=== PATIENT | male | born 1940 | race Caucasian/White ===

== ENCOUNTER → 2021-03-19 15:04 | Outpatient (CLI) | payer MEDICARE, SELFPAY ==
--- NOTE | 2021-03-19 15:13 | DI.ECHO.S_ITS ---
[facility]---------[facility] +---------+ : : [address] : [address] : : : : [id number] : : : : Phone: [phone]---------+ Echocardiogram Report + + :Name: SEBASTIEN PETERS Study Date: 03/19/2021 Height: 70 in : :[facility] ReadingLocation: Weight: 180 lb : : Gender: Male BSA: 2.0 m2 : :: 1940 Age: 80 yrs BP: 115/65 mmHg: :Reason For Study: Cardiomyopathy, Ischemic : :Ordering Physician: Yan : :Myrna Stock Performed By: Olvin Cruz : :Referring: YAN STOCK : + + Interpretation Summary 1) Normal left ventricular size and thickness with moderately reduced systolic function (EF 35-40%). 2) The apical 1/3 of the LV extending to the mid to distal septum are akinetic. Rest of the LV is mildly hypokinetic. 3) Normal right ventricular size and function. 4) No significant valvular abnormlaities. 5) No prior Echo available for comparison. Procedure: A two-dimensional transthoracic echocardiogram with color flow and Doppler was performed. The study quality was technically difficult. There is no prior echocardiogram noted for this patient. The patient was in sinus rhythm with heart rates between 65-83 bpm during the exam. Left Ventricle: The left ventricle is normal in size and wall thickness. The left ventricle is not well visualized. Left ventricular systolic function is moderately reduced. The ejection fraction is estimated to be 35-40%. The apical 1/3 of the LV extending to the mid to distal septum are akinetic. Rest of the LV is mildly hypokinetic. Diastolic parameters suggest a relaxation abnormality of the left ventricle, consistent with probable normal filling pressures. Right Ventricle: The right ventricle is normal in size and function. Atria: Both atria are normal in size. Right atrial size is normal. There is no Doppler evidence for an interatrial shunt. Mitral Valve: There is mild mitral annular calcification. There is no mitral regurgitation noted. Aortic Valve: The aortic valve is normal in structure and function. There is no aortic valve stenosis. No aortic regurgitation is present. Tricuspid Valve: The tricuspid valve is normal in structure and function. There is mild tricuspid regurgitation. Right ventricular systolic pressure is estimated to be 25 mmHg plus the clinically estimated CVP which cannot be estimated on this exam. Pulmonic Valve: The pulmonic valve is not well seen, but is grossly normal. There is no pulmonic valvular regurgitation. Great Vessels: The aortic root is normal size. The dimensions of the ascending aorta are normal. The inferior vena cava was not visualized. Pericardium/ Pleura There is no pericardial effusion. There is no pleural effusion. MMode/2D Measurements & Calculations LVIDd: 5.0 cm LVOT diam: 2.4 cm LVIDs: 4.2 cm Ao root diam: 3.7 cm FS: 17.1 % asc Aorta Diam: 3.2 cm IVSd: 1.1 cm LVPWd: 0.67 cm LV ferguson. diameter/BSA (cm/m^2): 2.5 LV sys. diameter/BSA (cm/m^2): 2.1 LA A2 area: 18.5 cm2 RA long axis: 4.2 cm LA A4 area: 16.5 cm2 RA area: 13.0 cm2 LA length (vol): 4.7 cm RA vol: 34.3 ml LA vol: 54.7 ml RA : 17.2 ml/m2 LA vol index: 27.4 ml/m2 TAPSE: 2.1 cm Doppler Measurements & Calculations Ao V2 max: 109.6 cm/sec LVOT Max Ahmet: 66.7 cm/sec Ao V2 mean: 79.6 cm/sec LV V1 max P.8 mmHg Ao max P.8 mmHg LV V1 VTI: 14.6 cm Ao mean P.8 mmHg SONIA(I,D): 2.7 cm2 Ao V2 VTI: 23.9 cm SONIA(V,D): 2.7 cm2 sev ratio: 0.61 SONIA indexed to BSA (cm^2/m^2): 1.3 MV E max ahmet: 51.3 cm/sec TR max ahmet: 251.2 cm/sec MV A max ahmet: 99.3 cm/sec TR max P.2 mmHg MV E/A: 0.52 PA V2 max: 74.9 cm/sec Med Peak E' Ahmet: 5.2 cm/sec PA V2 mean: 61.4 cm/sec E/E' med: 10.0 PA mean P.6 mmHg Lat Peak E' Ahmet: 6.0 cm/sec PA pr(Accel): 40.6 mmHg E/E' lat: 8.6 E/e' average: 9.3 MV dec time: 0.28 sec SV(LVOT): 63.7 ml Reading Physician:05:20 PM
== END ==
PROVIDERS: Referring Provider Internal Medicine Cardiovascular Disease; Visit Provider Internal Medicine Cardiovascular Disease
DX: I07.1 Rheumatic tricuspid insufficiency (principal); I25.5 Ischemic cardiomyopathy
CPT/HCPCS: 93306

== ENCOUNTER → 2023-04-15 15:40 | Outpatient (CLI) | payer MEDICARE, SELFPAY | PROVIDERS: PCP Family Medicine; Visit Provider Physician Assistant | DX: N39.0 Urinary tract infection, site not specified (principal) | CPT/HCPCS: 87086 ==

== ENCOUNTER → 2023-04-18 14:05 | Outpatient (CLI) | payer MEDICARE, SELFPAY ==
--- NOTE | 2023-04-18 14:06 | DI.US.S_ITS ---
PROCEDURE: US RENAL COMPLETE INDICATIONS: RAQUEL PAINLESS BLOOD IN URINE TECHNIQUE: Real-time scanning was performed of the kidneys and bladder, with image documentation. COMPARISON: None. FINDINGS: Kidneys: Kidneys are normal in size. Right kidney measures 11.2 cm long; left kidney measures 11.2 cm long. Right renal cortical thickness is 1.2 cm; left renal cortical thickness is 1.4 cm. Renal cortical echotexture is normal. Non-obstructing left renal stone measuring 3 mm with posterior shadowing. No hydronephrosis. Right renal simple cyst measuring 1.5 cm. Bladder: Pre-void bladder volume is 211 mL. Post-void residual is 65 mL. Pre-void images demonstrate no intraluminal masses or stones. On pre-void images, bilateral ureteral jets are noted with color Doppler interrogation. (Of note, ureteral jets may not be detectable in up to 25% of cases due to insufficient differences in specific gravity between ureteral and bladder urine). Miscellaneous: No free pelvic fluid. IMPRESSION: 1. Non-obstructing left renal stone measuring 3 mm. No hydronephrosis 2. Postvoid residual volume of 65 mL. Dictated by: Onofre Paniagua M.D. on 04/18/2023 at 14:51 Approved by: Onofre Paniagua M.D. on 04/18/2023 at 14:54
== END ==
PROVIDERS: PCP Family Medicine; Referring Provider Family Medicine; Visit Provider Family Medicine
DX: R31.9 Hematuria, unspecified (principal); N20.0 Calculus of kidney
CPT/HCPCS: 76770

== ENCOUNTER 2023-06-29 12:13 | Emergency (ER) | payer MEDICARE, SELFPAY ==
[2023-06-29] VITALS (7 sets, daily range): BP systolic 119–157; BP diastolic 59–72; PULSE 57–78; RESP 16; TEMP 36.8; O2SAT 98–99; BMI 25.8
[2023-06-29 12:39] LABS: Appearance Urine UA CLEAR; Bilirubin Urine UA NEGATIVE (NEGATIVE); Color Urine UA YELLOW; Glucose Urine UA NEGATIVE (Negative); Ketones Urine UA 1+ (NEGATIVE); Leukocyte Esterase Urine UA TRACE (NEGATIVE); Nitrite Urine UA NEGATIVE (Negative); Occult Blood Urine UA 3+ (Negative); Protein Urine UA 2+ (Negative); pH Urine UA 6.5 (4.5-8.0)
[2023-06-29 12:54] LABS: Bacteria Urine Few (2-10); Culture Indicated Urine Specimen Cultured; RBC Urine >100/HPF (0-5/HPF); Squamous Epithelial Cell Urine 0-1 /HPF (0-5/HPF); WBC Urine 0-1/HPF (0-5/HPF)
[2023-06-29 12:57] LABS: Add Manual Diff / Slide Review NO; Basophils Absolute Auto 100 /uL (0-100); Basophils Percent Auto 0.6 % (0-2); Eosinophils Absolute Auto 0 /uL (0-450); Eosinophils Percent Auto 0.1 % (2-4); Hematocrit 44.8 % (41-53); Hemoglobin 15.2 g/dL (13.5-17.5); Lymphocytes Absolute Auto 700 /uL (1100-4500); Mean Corpuscular HGB Conc 33.8 % (30-36); Mean Corpuscular Hemoglobin 33.9 PG (26-34); Monocytes Absolute Auto 400 /uL (0-900); Neutrophils Absolute Auto 8200 /uL (1500-7000); Neutrophils Percent Auto 87.3 % (50-75); Platelet Count 130 X10^3/uL (150-400); Red Blood Cell Count 4.48 X10^6/uL (4.5-5.9); Red Cell Distribution Width 14.3 % (11.6-14.8); White Blood Cell Count 9.3 X10^3/uL (4.5-11.0)
[2023-06-29 13:11] LABS: Lactate (Lactic Acid) 1.1 mmol/L (0.7-2.1)
[2023-06-29 13:12] LABS: Alanine Aminotransferase 23 IU/L (<50); Albumin 4.2 g/dL (3.5-5.0); Albumin Globulin Ratio 1.6 (1.0-2.8); Alkaline Phosphatase 69 U/L (38-126); Aspartate Aminotransferase 26 IU/L (17-59); BUN Creatinine Ratio 22.5 (6-22); Bilirubin Total 0.5 mg/dL (0.2-1.3); Blood Urea Nitrogen 27 mg/dL (9-20); Calcium 9.3 mg/dL (8.4-10.2); Carbon Dioxide 30 mmol/L (22-32); Chloride 102 mmol/L (98-107); Estimated Glomerular Filt Rate > 60 mL/min (>60); Globulin 2.7 g/dL (1.7-4.1); Glucose 144 mg/dL (80-110); HEMOLYSIS 15 (0-50); Potassium 4.9 mmol/L (3.4-5.1); Sodium 137 mmol/L (137-145); Total Protein 6.9 g/dL (6.3-8.2)
[2023-06-29] MEDS: SODIUM CHLORIDE 0.9% 500 ML IV (13:19)
--- NOTE | 2023-06-29 13:25 | DI.CT.S_ITS ---
PROCEDURE: CT ABDOMEN PELVIS W CON INDICATIONS: hematuria, flank pain TECHNIQUE: After the administration of intravenous contrast, 5 mm thick images acquired from the diaphragm to the symphysis pubis For radiation dose reduction, the following was used: automated exposure control, adjustment of mA and/or kV according to patient size. COMPARISON: [facility], , US RENAL COMPLETE, 04/18/2023, 14:12. FINDINGS: Image quality: Excellent. Lung bases: Lung bases are clear. Heart size is normal. Urinary system: Both kidneys are atrophic in size and enhancement. There is a 3 mm proximal left ureteral calcification with mild hydronephrosis and mild proximal hydroureter. Simple bilateral renal cysts are present. Contrast-filled renal calyces are normal in morphology. Contrast filled portions of both ureters are normal in caliber. Bladder wall thickness is normal. Solid organs: Liver is normal in size and enhancement. Hepatic steatosis is present. Gallbladder is unremarkable . Biliary system is non dilated. Pancreas enhances normally. Spleen is normal in size and enhancement. No adrenal nodules. Peritoneum and bowel: Bowel loops are nonobstructive. There is mild appearance of thickening at the rectum. Colonic diverticula are present. Nodes and vessels: No retroperitoneal or mesenteric adenopathy by size criteria. Aorta and inferior vena cava are normal in size. Abdominal wall: Fat containing ventral hernia. Pelvis: No pathologic free pelvic fluid. No inguinal hernias or adenopathy. Prostate gland is enlarged and heterogeneous in appearance. Bones: No suspicious bony lesions. No acute vertebral body compression fractures. Chronic appearing compression deformity at L3 is present. IMPRESSION: 3 mm proximal left ureteral calculus with mild obstruction. Diverticulosis. Mild circumferential thickening at the rectum. While this could be secondary to incomplete distention, follow-up is recommended to exclude presence of developing mass. Enlarged heterogeneous appearance of the prostate. Recommend correlation to PSA levels, as heterogeneous appearance could be indicative of underlying pathology. Dictated by: Delmi Verduzco M.D. on 06/29/2023 at 14:04 Approved by: Delmi Verduzco M.D. on 06/29/2023 at 14:07
--- NOTE | 2023-06-29 13:41 | ED.MALEGU ---
HPI - Male Genitourinary <Manju Mtz PA-C - Last Filed: 06/29/23 14:58> General Chief complaint: Urogenital-Male Stated complaint: Kidney issues with bloody urine and pain Time Seen by Provider: 06/29/23 12:30 Source: patient Mode of arrival: Ambulatory History of Present Illness HPI Narrative: Patient is an 83-year-old male who presents with hematuria and left-sided flank pain. He reports a history of about 2 months of intermittent hematuria. He was seen 04/15/2023 in the walk-in clinic and diagnosed with a urinary tract infection with hematuria. He also had a renal ultrasound at that time that showed 1 nonobstructive stone. He completed the prescribed antibiotics and felt better. He does not think he is passed a stone since then and he has had intermittent episodes of 3-4 days of hematuria with occasional low back pain. He endorses chills over the past several days but no fever. He has no history of smoking. He has a history of AFib and is anticoagulated. Related Data Home Medications Medication Instructions Recorded Confirmed brimonidine 0.1 % eye drops 1 drp EYE-BOTH TID 03/18/23 06/03/23 (Alphagan P) losartan 25 mg tablet 12.5 mg PO .qhs 03/18/23 06/03/23 rivaroxaban 20 mg tablet (Xarelto) 20 mg PO DAILY 03/18/23 06/03/23 rosuvastatin 5 mg tablet 5 mg PO DAILY 03/18/23 06/03/23 sacubitril 24 mg-valsartan 26 mg 0.5 tab PO BID 03/18/23 06/03/23 tablet (Entresto) sotalol 160 mg tablet 160 mg PO Q12H 03/18/23 06/03/23 tamsulosin 0.4 mg capsule 0.4 mg PO DAILY 03/18/23 06/03/23 travoprost 0.004 % eye drops 1 drp EYE-BOTH QPM 03/18/23 06/03/23 Allergies Allergy/AdvReac Type Severity Reaction Status Date / Time No Known Drug Allergies Allergy Verified 06/29/23 13:56 Review of Systems <Manju Mtz PA-C - Last Filed: 06/29/23 14:58> Review of Systems ROS Unobtainable: All systems reviewed & are unremarkable except as noted in HPI and below Patient History <Manju Mtz PA-C - Last Filed: 06/29/23 14:58> Medical History Vision decreased Hearing loss (~1999) Cataracts, bilateral (~2013) Cardiac arrhythmia (~1999) BPH (benign prostatic hyperplasia) Paroxysmal atrial fibrillation Hyperlipidemia Systolic CHF Ventricular tachycardia Glaucoma (~2017) Surgical History Anesthesia Presence of combination internal cardiac defibrillator (ICD) and pacemaker (~2017) Family History Father No problems noted. Grandfather History of heart disease Grandmother History of heart disease Social History Smoking Status: Never smoker Smoking Status: Never smoker Substance Use Type: does not use Exam <Manju Mtz PA-C - Last Filed: 06/29/23 14:58> Narrative Exam Narrative: GENERAL: 83 year old patient appears stated age. Well-developed patient, in mild distress. NEURO: AOx3. HEAD: Atraumatic. Normocephalic. EYES: Pupils equal round and reactive. Extraocular motions intact. No scleral icterus. No injection or drainage. ENT: Nose without bleeding or purulent drainage. Airway patent. NECK: Trachea midline. Non tender CARDIOVASCULAR: Regular rate and rhythm without murmurs, gallops, or rubs. RESPIRATORY: Clear to auscultation. Breath sounds equal bilaterally. No wheezes, rales, or rhonchi. GASTROINTESTINAL: Abdomen soft, non-tender, nondistended. Patient states he has mild left flank pain at the time of our exam. He has negative bilateral CVA tenderness. SKIN: No rash or erythema of visible areas Initial Vital Signs Initial Vital Signs: Vital Signs Temperature 98.3 F 06/29/23 12:17 Pulse Rate 78 06/29/23 12:17 Respiratory Rate 16 06/29/23 12:17 Blood Pressure 155/72 H 06/29/23 12:17 Pulse Oximetry 98 06/29/23 12:17 Oxygen Delivery Method Room Air 06/29/23 12:17 <Josesito Camarena MD - Last Filed: 06/29/23 18:01> Initial Vital Signs Initial Vital Signs: Vital Signs Temperature 98.3 F 06/29/23 12:17 Pulse Rate 78 06/29/23 12:17 Respiratory Rate 16 06/29/23 12:17 Blood Pressure 155/72 H 06/29/23 12:17 Pulse Oximetry 98 06/29/23 12:17 Oxygen Delivery Method Room Air 06/29/23 12:17 Course <Manju Mtz PA-C - Last Filed: 06/29/23 14:58> Orders Ordered: ED Orders 06/29/23 12:25 Urinalysis and Microscopic Stat Urine Culture Stat 06/29/23 12:47 Complete Blood Count AUTO DIFF Stat Comprehensive Metabolic Panel Stat Lactate (Lactic Acid) Stat 06/29/23 13:25 CT abdomen pelvis w con Stat Discontinued Medications Sodium Chloride (Normal Saline 0.9%) 500 mls @ 500 mls/hr IV BOLUS ONE Stop: 06/29/23 13:40 Last Infusion: 06/29/23 14:41 Dose: Infused Documented By: Admin: 06/29/23 13:19 Dose: 500 mls/hr Documented By: PHIL Vital Signs Vital signs: Vital Signs - 8 hr 06/29/23 12:17 06/29/23 13:07 06/29/23 13:08 Temperature 98.3 F Pulse Rate 78 59 L Respiratory Rate 16 Blood Pressure 155/72 H Pulse Oximetry 98 98 98 Oxygen Delivery Method Room Air 06/29/23 13:08 06/29/23 13:30 06/29/23 13:30 Temperature Pulse Rate 57 L Respiratory Rate Blood Pressure 146/70 H 136/61 Pulse Oximetry 98 Oxygen Delivery Method 06/29/23 13:55 06/29/23 13:55 06/29/23 14:00 Temperature Pulse Rate 70 Respiratory Rate Blood Pressure 157/71 H 148/69 H Pulse Oximetry 99 Oxygen Delivery Method 06/29/23 14:00 06/29/23 14:30 06/29/23 14:30 Temperature Pulse Rate 61 62 Respiratory Rate 16 Blood Pressure 119/59 L Pulse Oximetry 99 99 Oxygen Delivery Method Room Air <Josesito Camarena MD - Last Filed: 06/29/23 18:01> Orders Ordered: ED Orders 06/29/23 12:25 Urinalysis and Microscopic Stat Urine Culture Stat 06/29/23 12:47 Complete Blood Count AUTO DIFF Stat Comprehensive Metabolic Panel Stat Lactate (Lactic Acid) Stat 06/29/23 13:25 CT abdomen pelvis w con Stat Discontinued Medications Sodium Chloride (Normal Saline 0.9%) 500 mls @ 500 mls/hr IV BOLUS ONE Stop: 06/29/23 13:40 Last Infusion: 06/29/23 14:41 Dose: Infused Documented By: Admin: 06/29/23 13:19 Dose: 500 mls/hr Documented By: NL Vital Signs Vital signs: Vital Signs - 8 hr 06/29/23 12:17 06/29/23 13:07 06/29/23 13:08 Temperature 98.3 F Pulse Rate 78 59 L Respiratory Rate 16 Blood Pressure 155/72 H Pulse Oximetry 98 98 98 Oxygen Delivery Method Room Air 06/29/23 13:08 06/29/23 13:30 06/29/23 13:30 Temperature Pulse Rate 57 L Respiratory Rate Blood Pressure 146/70 H 136/61 Pulse Oximetry 98 Oxygen Delivery Method 06/29/23 13:55 06/29/23 13:55 06/29/23 14:00 Temperature Pulse Rate 70 Respiratory Rate Blood Pressure 157/71 H 148/69 H Pulse Oximetry 99 Oxygen Delivery Method 06/29/23 14:00 06/29/23 14:30 06/29/23 14:30 Temperature Pulse Rate 61 62 Respiratory Rate 16 Blood Pressure 119/59 L Pulse Oximetry 99 99 Oxygen Delivery Method Room Air MDM - Male Genitourinary <Manju Mtz PA-C - Last Filed: 06/29/23 14:58> Lab Data 06/29/23 12:47 06/29/23 12:47 Labs: Lab Results 06/29/23 06/29/23 Range/Units 12:25 12:47 WBC 9.3 (4.5-11.0) X10^3/uL RBC 4.48 L (4.5-5.9) X10^6/uL Hgb 15.2 (13.5-17.5) g/dL Hct 44.8 (41-53) % MCV 100.0 (80-100) fL MCH 33.9 (26-34) PG MCHC 33.8 (30-36) % RDW 14.3 (11.6-14.8) % Plt Count 130 L (150-400) X10^3/uL Neut % (Auto) 87.3 H (50-75) % Lymph % (Auto) 8.0 L (25-40) % [place] % (Auto) 4.0 (3-14) % Eos % (Auto) 0.1 L (2-4) % Baso % (Auto) 0.6 (0-2) % Neut # (Auto) 8200 H (2746-4665) /uL Lymph # (Auto) 700 L (4267-7621) /uL [place]hing # (Auto) 400 (0-900) /uL Eos # (Auto) 0 (0-450) /uL Baso # (Auto) 100 (0-100) /uL Sodium 137 (137-145) mmol/L Potassium 4.9 (3.4-5.1) mmol/L Chloride 102 (98-107) mmol/L Carbon Dioxide 30 (22-32) mmol/L BUN 27 H (9-20) mg/dL Creatinine 1.20 (0.66-1.25) mg/dL Estimated GFR > 60 (>60) mL/min BUN/Creatinine Ratio 22.5 H (6-22) Glucose 144 H (80-110) mg/dL Lactate 1.1 (0.7-2.1) mmol/L Calcium 9.3 (8.4-10.2) mg/dL Total Bilirubin 0.5 (0.2-1.3) mg/dL AST 26 (17-59) IU/L ALT 23 (<50) IU/L Alkaline Phosphatase 69 (38-126) U/L Total Protein 6.9 (6.3-8.2) g/dL Albumin 4.2 (3.5-5.0) g/dL Globulin 2.7 (1.7-4.1) g/dL Albumin/Globulin Ratio 1.6 (1.0-2.8) Urine Color Yellow Urine Appearance Clear Urine pH 6.5 (4.5-8.0) Ur Specific [place] 1.020 (1.000-1.035) Urine Protein 2+ H (Negative) Urine Glucose (UA) Negative (Negative) g/dL Urine Ketones 1+ H (NEGATIVE) Urine Occult Blood 3+ H (Negative) Urine Nitrate Negative (Negative) Urine Bilirubin Negative (NEGATIVE) Urine Urobilinogen 1.0 (0.2) E.U./dL Ur Leukocyte Esterase Trace H (NEGATIVE) Urine RBC >100/hpf H (0-5/HPF) Urine WBC 0-1/hpf (0-5/HPF) Ur Squamous Epith Cells 0-1 /hpf (0-5/HPF) Urine Bacteria Few (2-10) H (None) Ur Culture Indicated? Specimen cultured Imaging Data CT scan - abdomen/pelvis: Radiologist's Impression: PROCEDURE: CT ABDOMEN PELVIS W CON INDICATIONS: hematuria, flank pain TECHNIQUE: After the administration of intravenous contrast, 5 mm thick images acquired from the diaphragm to the symphysis pubis For radiation dose reduction, the following was used: automated exposure control, adjustment of mA and/or kV according to patient size. COMPARISON: [facility], US, US RENAL COMPLETE, 04/18/2023, 14:12. FINDINGS: Image quality: Excellent. Lung bases: Lung bases are clear. Heart size is normal. Urinary system: Both kidneys are atrophic in size and enhancement. There is a 3 mm proximal left ureteral calcification with mild hydronephrosis and mild proximal hydroureter. Simple bilateral renal cysts are present. Contrast-filled renal calyces are normal in morphology. Contrast filled portions of both ureters are normal in caliber. Bladder wall thickness is normal. Solid organs: Liver is normal in size and enhancement. Hepatic steatosis is present. Gallbladder is unremarkable . Biliary system is non dilated. Pancreas enhances normally. Spleen is normal in size and enhancement. No adrenal nodules. Peritoneum and bowel: Bowel loops are nonobstructive. There is mild appearance of thickening at the rectum. Colonic diverticula are present. Nodes and vessels: No retroperitoneal or mesenteric adenopathy by size criteria. Aorta and inferior vena cava are normal in size. Abdominal wall: Fat containing ventral hernia. Pelvis: No pathologic free pelvic fluid. No inguinal hernias or adenopathy. Prostate gland is enlarged and heterogeneous in appearance. Bones: No suspicious bony lesions. No acute vertebral body compression fractures. Chronic appearing compression deformity at L3 is present. IMPRESSION: 3 mm proximal left ureteral calculus with mild obstruction. Diverticulosis. Mild circumferential thickening at the rectum. While this could be secondary to incomplete distention, follow-up is recommended to exclude presence of developing mass. Enlarged heterogeneous appearance of the prostate. Recommend correlation to PSA levels, as heterogeneous appearance could be indicative of underlying pathology. Dictated by: Delmi Verduzco M.D. on 06/29/2023 at 14:04 Approved by: Delmi Verduzco M.D. on 06/29/2023 at 14:07 [facility] Narrative Medical decision making narrative: Multiple etiologies for patient's symptoms considered including, but not limited to: Urinary tract infection, pyelonephritis, nephrolithiasis, bladder cancer, renal dysfunction. Labs today did not indicate patient has not infection, including no leukocytosis and a clear urinalysis. Renal function is adequate. CT shows a proximal mildly obstructive stone with mild hydronephrosis. Patient's vital signs are within normal limits and stable, he is comfortable and pain is adequately managed with Tylenol. He received 500 mL NS bolus for hydration. Patient already takes tamsulosin daily and he will continue taking Tylenol at home, NSAIDs contraindicated due to his anticoagulation. He denies offer of a opiate prescription for severe pain. Discussed incidental findings of thickening of the rectum and enlarged heterogeneous appearance of the prostate on the CT. Advised patient to follow up in regards to these findings with his primary care provider when he returns to [place]. No need for urgent evaluation today. Patient's symptoms improved over duration of stay with above-stated therapies. Findings and discharge diagnosis discussed with patient/family followed by verbalization of understanding Return precautions discussed with patient/family whom verbalize understanding of diagnosis and plan <Josesito Camarena MD - Last Filed: 06/29/23 18:01> Lab Data Labs: Lab Results 06/29/23 06/29/23 Range/Units 12:25 12:47 WBC 9.3 (4.5-11.0) X10^3/uL RBC 4.48 L (4.5-5.9) X10^6/uL Hgb 15.2 (13.5-17.5) g/dL Hct 44.8 (41-53) % MCV 100.0 (80-100) fL MCH 33.9 (26-34) PG MCHC 33.8 (30-36) % RDW 14.3 (11.6-14.8) % Plt Count 130 L (150-400) X10^3/uL Neut % (Auto) 87.3 H (50-75) % Lymph % (Auto) 8.0 L (25-40) % Pershing % (Auto) 4.0 (3-14) % Eos % (Auto) 0.1 L (2-4) % Baso % (Auto) 0.6 (0-2) % Neut # (Auto) 8200 H (4021-0789) /uL Lymph # (Auto) 700 L (2264-5931) /uL [place] # (Auto) 400 (0-900) /uL Eos # (Auto) 0 (0-450) /uL Baso # (Auto) 100 (0-100) /uL Sodium 137 (137-145) mmol/L Potassium 4.9 (3.4-5.1) mmol/L Chloride 102 (98-107) mmol/L Carbon Dioxide 30 (22-32) mmol/L BUN 27 H (9-20) mg/dL Creatinine 1.20 (0.66-1.25) mg/dL Estimated GFR > 60 (>60) mL/min BUN/Creatinine Ratio 22.5 H (6-22) Glucose 144 H (80-110) mg/dL Lactate 1.1 (0.7-2.1) mmol/L Calcium 9.3 (8.4-10.2) mg/dL Total Bilirubin 0.5 (0.2-1.3) mg/dL AST 26 (17-59) IU/L ALT 23 (<50) IU/L Alkaline Phosphatase 69 (38-126) U/L Total Protein 6.9 (6.3-8.2) g/dL Albumin 4.2 (3.5-5.0) g/dL Globulin 2.7 (1.7-4.1) g/dL Albumin/Globulin Ratio 1.6 (1.0-2.8) Urine Color Yellow Urine Appearance Clear Urine pH 6.5 (4.5-8.0) Ur Specific [place] 1.020 (1.000-1.035) Urine Protein 2+ H (Negative) Urine Glucose (UA) Negative (Negative) g/dL Urine Ketones 1+ H (NEGATIVE) Urine Occult Blood 3+ H (Negative) Urine Nitrate Negative (Negative) Urine Bilirubin Negative (NEGATIVE) Urine Urobilinogen 1.0 (0.2) E.U./dL Ur Leukocyte Esterase Trace H (NEGATIVE) Urine RBC >100/hpf H (0-5/HPF) Urine WBC 0-1/hpf (0-5/HPF) Ur Squamous Epith Cells 0-1 /hpf (0-5/HPF) Urine Bacteria Few (2-10) H (None) Ur Culture Indicated? Specimen cultured Discharge Plan Departure Patient Disposition: Home Clinical Impression: Kidney stone on left side Hematuria Qualifiers: Hematuria type: gross Qualified Code(s): R31.0 - Gross hematuria Instructions: DI for Kidney Stones Activity Restrictions/Additional Instructions: *You have been diagnosed with left kidney stone. As we discussed, this kidney stone is causing some obstruction of your left ureter which is what causes the bleeding from irritation of the ureter. There is also a small amount of fluid urine backed up into the left kidney. Your kidney stone is 3 mm, which should pass on its own. You should drink lots of water and take Tylenol for pain. If you develop a fever, nausea vomiting, a significant increase in pain or feeling unwell, you should return for reassessment to make sure you do not develop a urinary tract infection. You can monitor to see if you pass the stone and follow up with Urology. Keep taking your tamsulosin which will help you pass the stone. After he passed the stone, it is good to make sure that the bleeding has stopped; if you continue to have blood in your urine, you should speak with your primary care for further evaluation. I have given you a copy of your CT report; please follow-up with your primary care in [place] regarding the prostate and rectal wall thickening. *What to do: *Please continue to take your regular medications as directed. [ ] New medication prescriptions sent to your pharmacy: [ ] [ ] New medication written as a paper prescription [x] No new medications given *Please follow up with your primary care provider in 2-3 days, call for an appointment. Let them know you were seen in the Emergency Department and that we ask that you be seen in follow up. We will electronically transmit a record of today's note if your PCP is in our system *If you do not have a primary care provider please contact the [facility] Resource line at [phone]. They will ask some questions about your medical history and help get you set up with a doctor in the community. *Return to Emergency Department if you should have any new, worsening or concerning symptoms, such as [fever greater than 101 F, shaking chills, worsening pain, persistent vomiting or other concerning symptoms]. Prescriptions: No Action losartan 25 mg tablet 12.5 mg PO .qhs sotalol 160 mg tablet 160 mg PO Q12H rosuvastatin 5 mg tablet 5 mg PO DAILY Patient Comments: TAKE 1 TABLET BY MOUTH EVERY DAY travoprost 0.004 % drops 1 drp EYE-BOTH QPM Patient Comments: INSTILL 1 DROP IN BOTH EYES AT BEDTIME FOR GLAUCOMA tamsulosin 0.4 mg capsule 0.4 mg PO DAILY Patient Comments: TAKE 1 CAPSULE BY MOUTH EVERY DAY Entresto 24-26 mg tablet 0.5 tab PO BID Alphagan P 0.1 % drops 1 drp EYE-BOTH TID Xarelto 20 mg tablet 20 mg PO DAILY Rx Instructions: must administer with evening meal Referrals: Willa Chandler DO [Primary Care Provider] - Stand Alone Forms: Patient Portal/API ED Sign-out <Josesito Camarena MD - Last Filed: 06/29/23 18:01> Cosign ED Attending Margy Attestation: I was immediately available in the department for consultation. ?This documentation has been reviewed and I agree with assessment and plan. Supervised by Josesito Camarena MD
== END 2023-06-29 14:58 | disposition home or self-care (01) ==
PROVIDERS: Emergency Medicine; Emergency Provider Physician Assistant; PCP Family Medicine
DX: N20.0 Calculus of kidney (principal); R31.0 Gross hematuria; Z79.01 Long term (current) use of anticoagulants; Z79.899 Other long term (current) drug therapy
CPT/HCPCS: 36415; 74177; 80053; 81001; 83605; 85025; 87086; 96360; 99284; Q9967